=== PATIENT | male | born 1980 | race Caucasian/White ===

== ENCOUNTER → 2022-02-28 | Outpatient (CLI) | payer BC ==
--- NOTE | 2022-02-28 10:56 | US ---
EXAMINATION TYPE: US abdomen comp/pelvis limited DATE OF EXAM: 02/28/2022 COMPARISON: NONE CLINICAL HISTORY: 41-year-old male M54.5 Low Back Pain. Lower back pain, hematuria TECHNIQUE: Multiple sonographic images of the abdomen and bladder are obtained. FINDINGS: EXAM MEASUREMENTS: Liver Length: 16.2 cm Gallbladder Wall: 0.2 cm CBD: 0.4 cm Spleen: 14.3 cm Right Kidney: 11.2 x 5.2 x 5.8 cm Left Kidney: 11.3 x 5.0 x 5.2 cm Pancreas: obscured by overlying midline bowel gas Liver: 1.0cm hyperechoic area right lobe, likely small hemangioma. Gallbladder: wnl CBD: visualized portions wnl, limited by overlying bowel gas Spleen: wnl, mildly enlarged. Right Kidney: wnl Left Kidney: wnl Upper IVC: wnl Abd Aorta: proximal portion obscured by overlying midline bowel gas, mid and distal portions wnl Bladder: not fully distended Bilateral Jets Seen no IMPRESSION: 1. A small 1 cm echogenic lesion posterior right upper lobe, likely a small hemangioma. A 6 month fol low-up ultrasound can ensure stability. 2. No gallstones or biliary ductal dilatation. 3. Mild splenomegaly at 14.3 cm. Clinically correlate. 4. Partially distended bladder shows no gross abnormality.
== END | disposition home or self-care (01) ==
LOC: RADUSWWP 09:36
PROVIDERS: ATTEND Family Medicine
DX: R16.1 Splenomegaly, not elsewhere classified (principal); N32.89 Other specified disorders of bladder
CPT/HCPCS: 76700; 76857

== ENCOUNTER → 2022-07-12 | Outpatient (CLI) | payer BC ==
--- NOTE | 2022-07-12 15:00 | XR ---
EXAMINATION TYPE: XR shoulder complete RT DATE OF EXAM: 07/12/2022 CLINICAL HISTORY: Pain. TECHNIQUE: Three views of the right shoulder are obtained. COMPARISON: None. FINDINGS: There is no acute fracture/dislocation evident in the right shoulder. The acromioclavicul ar and glenohumeral joint spaces appear within normal limits. The visualized ribs are intact and unr emarkable. IMPRESSION: Unremarkable study.
== END | disposition home or self-care (01) ==
LOC: RADXRYALE 14:33
PROVIDERS: ATTEND Physician Assistant
DX: M25.511 Pain in right shoulder (principal)

== ENCOUNTER → 2022-09-01 | Outpatient (CLI) | payer BC ==
--- NOTE | 2022-09-01 08:47 | US ---
EXAMINATION TYPE: US abdomen complete DATE OF EXAM: 09/01/2022 COMPARISON: US CLINICAL HISTORY: R93.3 ABN FINDINGS ON DX IMAGING F/U to previous ultrasound TECHNIQUE: Multiple sonographic images of the abdomen are obtained. FINDINGS: EXAM MEASUREMENTS: Liver Length: 14.2 cm Gallbladder Wall: 0.3 cm CBD: 0.7cm Spleen: 14.4 cm Right Kidney: 9.9 x 4.7 x 5.3 cm Left Kidney: 10.7 x 5.7 x 5.4 cm CYLINDER CHECKER NOTES: Patient of large body habitus with extensive overlying bowel gas, technically limited study. Pancreas: Obscured by bowel gas Liver: Left lobe obscured by overlying bowel gas, right lobe hyperechoic mass measuring 1.0 x 1.4 x 1.3cm Gallbladder: wnl Evidence for sonographic Velázquez's sign: no CBD: wnl Spleen: enlarged Right Kidney: No hydronephrosis or masses seen Left Kidney: No hydronephrosis or masses seen Upper IVC: not seen Abd Aorta: wnl as seen partially obscured by overlying bowel gas The liver is homogenous. The intrahepatic portion of the IVC and proximal abdominal aorta are within normal limits. There is no evidence of cholelithiasis. Common bile duct is unremarkable. The visu alized portions of the pancreas are homogenous. Kidneys are symmetric and free of hydronephrosis. N o renal lesions are seen. IMPRESSION: 1. Hepatic hemangioma. 2. Splenomegaly.
== END | disposition home or self-care (01) ==
LOC: RADUSWWP 07:42
PROVIDERS: ATTEND Family Medicine
DX: D18.03 Hemangioma of intra-abdominal structures (principal); R16.1 Splenomegaly, not elsewhere classified
CPT/HCPCS: 76700